=== PATIENT | male | born 1980 | race African-American/Black ===

== ENCOUNTER 2023-07-13 22:24 | Emergency (ER) | payer BC, OTHER ==
[~2023-07-13] VITALS: Ht 172.7 cm; Wt 59.0 kg
[2023-07-13 22:48] VITALS: BP 118/79; TEMP 98; O2SAT 100
[2023-07-13 22:50] VITALS: PULSE 116; RESP 16
== END 2023-07-14 04:28 | disposition left against medical advice (07) ==
LOC: ER 22:24
DX: H53.131 Sudden visual loss, right eye (principal); I49.9 Cardiac arrhythmia, unspecified; Z53.21 Procedure and treatment not carried out due to patient leaving prior to being seen by health care provider
CPT/HCPCS: 93005; 99281

== ENCOUNTER 2024-10-20 22:29 | Emergency (ER) | payer OTHER ==
[~2024-10-20] VITALS: Ht 172.7 cm; Wt 61.0 kg
[2024-10-20 22:34] VITALS: O2SAT 100
[2024-10-20 22:35] VITALS: TEMP 37.1; O2SAT 97
[2024-10-20 23:17] VITALS: BP 121/86; PULSE 136; RESP 18; TEMP 98.7
[2024-10-20] MEDS: KETOROLAC 30MG/ML VIAL IM ONE (23:17)
[2024-10-20] MEDS: ACETAMINOPHEN 325MG TABLET PO ONE (23:17)
[2024-10-21] MEDS ORDERED: NAPR-681 MT (00:01)
== END 2024-10-21 01:29 | disposition home or self-care (01) ==
LOC: ER 22:29
DX: M54.9 Dorsalgia, unspecified (principal); R07.89 Other chest pain; Z79.1 Long term (current) use of non-steroidal anti-inflammatories (NSAID); V49.40XA Driver injured in collision with unspecified motor vehicles in traffic accident, initial encounter; Y93.89 Activity, other specified; Y92.89 Other specified places as the place of occurrence of the external cause; Y99.8 Other external cause status
CPT/HCPCS: 99283; 71046; 96372; J1885

== ENCOUNTER 2024-10-23 20:01 | Emergency (ER) | payer OTHER ==
[~2024-10-23 20:01] MED LIST: NAPR-681 MT
[2024-10-23 20:05] VITALS: TEMP 37.2
[2024-10-23 20:48] LABS: BASOPHILS % 0.7 % (0.0-2.0); EOSINOPHILS % 4.5 % (0.0-5.0); HEMATOCRIT. 42.1 % (42.0-52.0); HEMOGLOBIN. 14.2 g/dL (14.0-18.0); LYMPHOCYTES % 24.6 % (20.0-50.0); MEAN CORPUSCULAR HEMOGLOBIN 31.4 pg (28.0-32.0); MEAN CORPUSCULAR HGB CONC 33.8 g/dL (31.0-37.0); MEAN PLATELET VOLUME 7.9 fl (7.4-10.4); MONOCYTES % 12.7 % (2.0-8.0); NEUTROPHILS % 57.5 % (40.0-76.0); PLATELET 403 x1000/uL (130-400); RED BLOOD CELL COUNT 4.53 mill/uL (4.7-6.1); RED CELL DISTRIBUTION WIDTH 12.6 % (11.6-14.6); WHITE BLOOD COUNT 4.5 x1000/uL (4.5-11.0)
[2024-10-23 20:53] LABS: CHLORIDE 100 mEq/L (98-107); POTASSIUM 3.8 mEq/L (3.5-5.1); SODIUM 138 mEq/L (136-145)
[2024-10-23 20:54] LABS: CALCIUM 10.8 mg/dL (8.7-10.4); CARBON DIOXIDE 28 mEq/L (21-32)
[2024-10-23 20:56] LABS: INR 0.9
[2024-10-23 20:59] LABS: CREATININE 1.5 mg/dL (0.6-1.3); GLUCOSE 74 mg/dL (70-105); UREA NITROGEN BLOOD 22 mg/dL (9-23)
[2024-10-23 22:19] VITALS: BP 129/64; PULSE 100; RESP 13; O2SAT 99
== END 2024-10-23 22:27 | disposition home or self-care (01) ==
LOC: ER 20:01
DX: E16.2 Hypoglycemia, unspecified (principal); Z79.1 Long term (current) use of non-steroidal anti-inflammatories (NSAID)
CPT/HCPCS: 36415; 71045; 80048; 82962; 85025; 99284